=== PATIENT | male | born 1935 | race Caucasian/White ===

== ENCOUNTER 2016-12-09 16:09 | Emergency (ER) | payer MEDICARE, OTHER ==
[2016-12-09] MEDS ORDERED: NORMAL SALINE 1,000 ML IV ONE (16:42)
[2016-12-09] MEDS ORDERED: MORPHINE SULFATE 2 MG/ML DISP.SYRIN IV ONE (16:42)
[2016-12-09] MEDS ORDERED: MORPHINE SULFATE 2 MG/ML DISP.SYRIN ONE (16:50)
[2016-12-09 16:59] LABS: Hematocrit 37.6 % (42.0-52.0); Hemoglobin 12.9 gm/dL (13.5-18.0); Mean Cell Volume 88.1 fl (78-100); Mean Corpuscular Hemoglobin 30.2 pg (27-31); Mean Corpuscular Hgb Conc 34.3 g/dl (32-36); Mean Platelet Volume 9.1 fl (6.0-9.5); Neutrophil # 11.2 K/mm3 (1.3-6.0); Neutrophil % 78.7 % (42-75.0); Platelet Count 171 K/mm3 (150-450); Red Blood Count 4.27 M/mm3 (4.7-6.0); Red Cell Distribution Width 12.7 % (11.5-14.0); White Blood Count 14.2 K/mm3 (4.0-10.5)
--- NOTE | 2016-12-09 17:03 | ERNOTE ---
<Chester Krameren - Last Filed: 12/09/16 18:29> Abdominal HPI - Narrative Date of Service: 12/09/16 - General Chief Complaint: Abdominal Pain Time Seen by Provider: 12/09/16 16:28 Source: patient Exam Limitations: no limitations - Immun/Allergies/Home Medications Immunizatons: IMMUNIZATION HX Immunizations Up to Date Yes History of Influenza Vaccine Yes Hx Pneumococcal Vaccination Yes Allergies/Adverse Reactions: Allergies No Known Allergies Allergy (Verified 12/09/16 16:27) Home Medications: HOME MEDICATIONS Allopurinol [Zyloprim] 300 mg PO DAILY 12/09/16 [Last Taken Unknown] Furosemide [Lasix] 20 mg PO DAILY 12/09/16 [Last Taken Unknown] Levofloxacin [Levaquin] 500 mg PO DAILY #7 tab 12/09/16 [Last Taken Unknown] Lisinopril [Zestril] 40 mg PO DAILY 12/09/16 [Last Taken Unknown] Metoprolol Succinate 25 mg PO DAILY 12/09/16 [Last Taken Unknown] Omeprazole 20 mg PO DAILY 12/09/16 [Last Taken Unknown] - History of Present Illness Narrative: Patient presents to the ED for abdominal pain. he relates his "guts are aching ". This has been present for approx 24 hours. No fever. Nausea but no vomiting. Had a stool today, mildly lose but no blood. Never had anything like this before. No CP or SOB. Nothing really makes it better or worse. He thinks he may have had some bad chicken livers yesterday. Pain moderate today, severe last night and he could not sleep. Timing: constant Quality: moderate Activities at Onset: none Modifying Factors - (Improves): Present: other - nothing Modifying Factors - (Worsens): Present: other - nothing Associated Symptoms: Present: nausea. Absent: chest pain, diarrhea-gross blood , fever/chills, vomiting, shortness of breath Prior Abdominal Problems: Present: none Prior Treatment: Absent: recently seen Review of Systems - Review of Systems Constitutional: Absent: fever ENT: Absent: sore throat Respiratory: Absent: shortness of breath Cardiology: Absent: chest pain Gastrointestinal/Abdominal: Absent: abdominal pain Genitourinary: Absent: dysuria All Other Systems: All systems neg except as marked - Patient's Past Medical History Patient History - Medical: No pertinent hx Patient History - Cardiac/Respiratory: CHF, Hypertension Patient History - Cancer: No Hx of Cancer Patient History - Surgical Procedures: Appendectomy, Pacemaker, Other Patient History - Other: None - Social History Living Situations: home Abuse History: No History of abuse Psych History: No pertinent hx Smoking Status: Never smoker Alcohol Use: occasionally Drug Use: none - Immunizations Immunizations Up to Date: Yes Hx Pneumococcal Vaccination: Yes History of Influenza Vaccine: Yes Physical Exam - Physical Exam General Appearance: Present: alert, no apparent distress Head Exam: Present: normal inspection, no evidence of injury Eye Exam: Normal inspection: bilateral, PERRL: bilateral Ears, Nose, Throat: Present: normal ENT inspection Neck: Present: normal inspection Respiratory: Present: no respiratory distress, normal breath sounds, no accessory muscle use, lungs clear Cardiovascular/Chest: Present: regular rate, rhythm, normal peripheral pulses Gastrointestinal/Abdominal: Present: normal bowel sounds, soft, tenderness, other - mid and RUQ tenderness to palpation without peritoneal signs Back Exam: Absent: CVA tenderness (R), CVA tenderness (L) Extremity Exam: Present: normal inspection Neurological Exam: Present: alert, normal mood/affect, no motor/sensory deficits Skin Exam: Present: normal color, warm/dry ED Progress - Results and Orders Patient's Lab Results:: I have reviewed the patient's lab results. - Vital Signs Patient's Vital Signs:: I have reviewed the patient's vital signs. Vital Signs: Vital Signs 12/09/16 12/09/16 16:19 16:26 Temperature 36.9 C Pulse Rate 69 Respiratory 16 Rate Blood Pressure 166/94 O2 Sat by Pulse 97 Oximetry - EKG EKG Comments: paced rhythm rate 64. No clear evidence of STEMI. - Progress/Reassessment Chief Complaint: Abdominal Pain - Transfer of Care Physician Sign Out: Dejuan Kramer Receiving Physician: Chelsea Tan Pending Results: CT/MRI results Departure - Departure Clinical Impression: Abdominal pain Qualifiers: Abdominal location: right lower quadrant Qualified Code(s): R10.31 - Right lower quadrant pain Diverticulitis of both large and small intestine Qualifiers: Diverticulitis bleeding: without bleeding Diverticulitis complication: with perforation and without abscess Qualified Code(s): K57.40 - Diverticulitis of both small and large intestine with perforation and abscess without bleeding Cholelithiasis Qualifiers: Cholelithiasis location: gallbladder Cholecystitis presence: without cholecystitis Biliary obstruction: without biliary obstruction Qualified Code(s) : K80.20 - Calculus of gallbladder without cholecystitis without obstruction Disposition: Home self-care Condition: Stable Instructions: Fat and Cholesterol Restricted Diet, Diverticulitis, [id number] , Cholelithiasis, [id number] Additional Instructions: Patient is stable for discharge. Referrals: Irma Hughes MD [Staff Physician] - 12/13/16 (Recommend Gall Bladder Ultrasound near future ) Prescriptions: Levofloxacin [Levaquin] 500 mg PO DAILY #7 tab <Chelsea Tan - Last Filed: 12/09/16 22:07> Abdominal HPI - Immun/Allergies/Home Medications Immunizatons: IMMUNIZATION HX Immunizations Up to Date Yes History of Influenza Vaccine Yes Hx Pneumococcal Vaccination Yes ED Progress - Date and Time Seen: Date and Time: 12/09/16 20:52 Pt seen in E3, patient signed out from Day shift Dr. Kramer present patient, awaiting CT scan report. ABd pain was re-asseses. - Results and Orders Patient's Lab Results:: I have reviewed the patient's lab results. Results and Orders: Laboratory Tests 12/09/16 12/09/16 12/09/16 16:50 16:50 20:19 WBC 14.2 H RBC 4.27 L Hgb 12.9 L Hct 37.6 L Plt Count 171 Neutrophils % 78.7 H Lymphocytes % 10.5 L Monocytes % 10.2 H Eosinophils % 0.1 Basophils % 0.1 Nucleated RBC % 0.0 Sodium 141 Plasma Sodium 141 Potassium 4.0 Chloride 103 Carbon Dioxide 27.6 Anion Gap 14.4 H BUN 23 Creatinine 1.59 H Est GFR (Non-Af Amer) 45 L BUN/Creatinine Ratio 14.5 Random Glucose 125 H Calcium 8.9 Calcium Adj for Albumin 9.1 Total Bilirubin 0.6 AST 22 ALT 22 Alkaline Phosphatase 158 Troponin I 0.055 Total Protein 7.5 Albumin 3.4 Lipase 136 Urine Color Yellow Urine Appearance Clear Urine pH 5.5 Ur Specific Eva 1.015 Urine Protein Negative Urine Glucose (UA) Negative Urine Ketones Negative Urine Blood 10 H Urine Nitrate Negative Urine Bilirubin Negative Urine Urobilinogen Normal Ur Leukocyte Esterase Negative Urine RBC None seen Urine WBC 0-5 Ur Epithelial Cells 0-5 Urine Bacteria None seen Urine Culture Comments No culture indicated Laboratory Tests 12/09/16 12/09/16 16:50 16:50 Lactic Acid, Venous 1.8 Troponin I 0.055 - Vital Signs Patient's Vital Signs:: I have reviewed the patient's vital signs. Vital Signs: Vital Signs 12/09/16 12/09/16 16:19 16:26 Temperature 36.9 C Pulse Rate 69 Respiratory 16 Rate Blood Pressure 166/94 O2 Sat by Pulse 97 Oximetry - Transfer of Care Expected Disposition: Discharge - plan is to discharge on Levaquin 500 mg daily for the next 7 days and follow up with his primary care doctor here he has a physician appointment with Dr. Hughes, Plan - Plan Plan: Patient presented today with abdominal pain upper quadrant as well as lower quadrant right lower quadrant. He was evaluated by Dr. Kramer and signed out to me in this evening. He was awaiting CT scan of the abdomen and pelvis which I have reviewed both on the monitor and the CT report from December the demonstrated that this the appendix is not identified there is a small fluid collection within the right lower quadrant just inferior to the cecum patient has no evidence of bowel obstruction is normal-appearing urinary bladder no prostate calcifications no evidence of renal mass or obstructive uropathy he has a normal-appearing liver pancreas and spleen and adrenal glands. There is evidence of cholelithiasis with small. The colon, fluid collection. He has a moderate to large hiatal hernia noted he is status post coronary artery stenting and a cardiac pacemaker there is bilateral lung atelectasis noted as well. This report was by Dr. Deondre MALDONADO M.D. My plan is to give him IV Levaquin 500 mg IV this evening plan on having him get a abdominal ultrasound the gallbladder next is Available follow up with his primary care and treat for possible diverticulitis low-grade I that of a lactic acid to his laboratory panel is pending. His blood pressure was slightly low at 5. be rechecked now by thinners his pulse oximetry was normal he is well-appearing and his heart was regular rate and rhythm his lungs were basilar crackles his abdomen active bowel sounds are noted his of upper abdominal pain is not reproducible and his right lower pain is submitted significantly decreased he states down to about a 2 or 3 out of 10. Repeat blood pressure was 138/68.
[2016-12-09 17:18] LABS: Albumin * 3.4 gm/dl (3.4-5.0); Anion Gap 14.4 mmol/L (6.8-13.8); BUN/Creatinine Ratio 14.5 (9.0-21.6); Bilirubin, Total 0.6 mg/dL (0.0-1.1); Ca. Corrected For Albumin 9.1 mg/dL (8.4-10.2); Calcium * 8.9 mg/dL (7.9-10.9); Carbon Dioxide 27.6 mmol/L (24-32.6); Total Protein 7.5 gm/dL (6.2-8.2)
[2016-12-09 17:22] LABS: Troponin I 0.055 ng/ml (0.00-0.10)
[2016-12-09] MEDS ORDERED: DIATRIZOATE MEGLUMINE, SODIUM 30 ML BTL PO ONE (18:02)
[2016-12-09] MEDS ORDERED: DIATRIZOATE MEGLUMINE, SODIUM 30 ML BTL ONE (18:03)
[2016-12-09 20:37] LABS: Urine Appearance Clear; Urine Bilirubin Negative (NEGATIVE); Urine Blood 10 /ul (NEGATIVE); Urine Color Yellow; Urine Ketone Negative (NEGATIVE); Urine Specific Gravity 1.015 SP.GR. (1.005-1.030)
[2016-12-09 20:38] LABS: Urine Bacteria None Seen; Urine Nitrite Negative (NEGATIVE); Urine Protein Negative (NEGATIVE); Urine RBC None Seen /hpf (0-5); Urine Urobilinogen Normal (NORMAL); Urine WBC 0-5 /hpf (0-5); Urine pH 5.5 pH (5.0-7.0)
[2016-12-09] MEDS ORDERED: LEVOFLOXACIN/D5W 500 MG/100 ML BAG IV SCH (21:30)
[2016-12-09 22:40] VITALS: BP 147/66
== END 2016-12-09 22:35 | disposition home or self-care (01) ==
LOC: ER 16:09
DX: K57.40 Diverticulitis of both small and large intestine with perforation and abscess without bleeding (principal); K80.20 Calculus of gallbladder without cholecystitis without obstruction; R10.31 Right lower quadrant pain; Z95.0 Presence of cardiac pacemaker; I10 Essential (primary) hypertension; I50.9 Heart failure, unspecified